=== PATIENT | female | born 1990 | race Caucasian/White ===

== ENCOUNTER → 2016-10-26 | Outpatient (CLI) | payer OTHER | LOC: CIMAGING 09:34 | PROVIDERS: ATTEND Family Medicine | DX: N92.1 Excessive and frequent menstruation with irregular cycle (principal) | CPT/HCPCS: 76856-PO ==

== ENCOUNTER → 2017-09-22 | Outpatient (CLI) | payer OTHER | LOC: FIMAGING 12:08 | PROVIDERS: ATTEND Family Medicine Sports Medicine | DX: M25.572 Pain in left ankle and joints of left foot (principal); M79.672 Pain in left foot ==